=== PATIENT | male | born 1940 | race Caucasian/White ===

== ENCOUNTER → 2024-03-18 12:09 | Outpatient (REF) | payer MEDICARE, SELFPAY | LOC: RAD 12:09 | PROVIDERS: ATTENDING PHYSICIAN Pain Medicine Interventional Pain Medicine; FAMILY PHYSICIAN Internal Medicine | DX: M21.70 Unequal limb length (acquired), unspecified site (principal) | CPT/HCPCS: 77073 ==

== ENCOUNTER 2024-07-08 13:02 | Inpatient (IN) | payer MEDICARE, SELFPAY ==
[2024-07-08] VITALS (14 sets, daily range): BP systolic 127–168; BP diastolic 74–94; BMI 20.4
--- NOTE | 2024-07-08 10:54 | ED.GENMED ---
History of Present Illness
General
Chief Complaint: Chest Pain
Time Seen by Provider: 07/08/24 10:54
History of Present Illness
History of Present Illness:
TIME OF INITIAL ENCOUNTER: 11 AM
HPI: Patient presents for chest discomfort. This is described as tightness and woke him from sleep at 4 AM. He still has some ongoing discomfort. Although CAD is listed in his chart, the patient denies any known history of CAD. He does not have
any coronary stents. He is known to Dr. Gonzalez. He denies any shortness of breath. He reported to triage that he did have increased belching.
EXAM:
GENERAL: Well appearing in no distress
HEENT: Moist oral mucosa
CARDIOVASCULAR: No murmurs, normal heart rate, regular rhythm, No chest wall tenderness
PULMONARY: No respiratory distress, breath sounds are clear and equal
ABDOMEN: Soft with no peritoneal signs, no tenderness
NEUROLOGIC: Excellent strength all extremities, no coordination deficits
PSYCHIATRIC: Appropriate mental status, normal insight and judgement
EXTREMITIES: Nontender, no edema, moves all extremities equally
SKIN: No rash, no lesions
NUMBER AND COMPLEXITY OF PROBLEMS ADDRESSED AT THE ENCOUNTER
� Chronic conditions affecting care: High blood pressure, hyperlipidemia,
� Acute Exacerbation and/or Progression of Chronic Illness: This is an acute problem
� Differential Diagnosis includes: ACS, GERD, esophagitis, chest wall pain, anxiety
AMOUNT AND/OR COMPLEXITY OF DATA TO BE REVIEWED AND ANALYZED
� I performed an independent evaluation of and my interpretation is:
EKG: Sinus 79, left bundle branch block�more prominent now in comparison to 05/06/2022
CT:
X-rays:
Laboratory Studies: White count 13.1, hemoglobin normal, chemistries unremarkable, troponin elevated at 0.125 which is new (all old ones have been negative).
Other:
� Review of other/old records: I reviewed the nuclear stress test from 2022 which showed no reversible defect to suggest ischemia and was found to be a moderate risk study
� Clinical information was obtained by an independent historian: I spoke to the at bedside
� Prescriptions/Medications Considered but not given:
� Further testing considered but not performed:
RISK OF COMPLICATIONS AND/OR MORBIDITY OR MORTALITY OF PATIENT MANAGEMENT
� Social determinants of health affecting care: Lives at home
� Discussion with other providers: I notified Dr. Ayon and Dr. Cruz at 12:10 PM, also discussed with Dr. Desai was arranged for echo.
� Escalation of care including admission/observation vs risk of discharge considered: The patient has minimal chest discomfort still. He has a left bundle branch block which is new and a newly abnormal troponin. I have ordered
nitroglycerin sublingual, aspirin, and will plan to start heparin drip. He is very comfortable in appearance.
ANY OTHER UPDATES:
Before nitroglycerin given, chest pain resolved. Dr. Ayon also evaluated in the Emergency Department.
Past History
Past History
ED Past Medical History: Arrthythmia, HTN, Hypercholesterolemia and Other (Bronchitis, palpitations, BPH, cataracts)
ED Past Surgical History: None
Social History
Tobacco: Non-smoker
Alcohol: None
Drug: None
Personal:
Living: with family
Employment: Retired
Family History
Family History: Hypertension
Phy Exam
Physical Exam
Physical Exam:
See HPI
Scores
Heart Score for Chest Pain Patients
STEMI patient?: Not applicable
Course
Orders/Labs/Results
Orders:
Orders
07/08/24 10:39
Electrocardiogram (*1) Urgent
Reason for Study: Chest Pain
EKG- Treatment ONCE
07/08/24 11:11
Complete Blood Count/With Diff Urgent
Comprehensive Metabolic Panel Urgent
Magnesium Urgent
Troponin I Urgent
07/08/24 12:03
Aspirin 325 mg PO NOW STA
Heparin 4,000 units IV NOW STA
Nitroglycerin Sublingual [Nitrostat (Sublingual)] 0.4 mg SL NOW STA
Pharmacy Request to Place See Dose Instructions PO NOW STA
Discontinue all Active Warfarin orders?: Yes
07/08/24 12:[address] Non Medication Order As Directed
Physician Order: PTT 6 hours after initial start of Heparin infusion
07/08/24 12:11
PTT Urgent
Comment: Obtain baseline before beginning heparin infusion if not already collected
07/08/24 12:15
Heparin 86186 Units/250 ml 25,000 units in 250 ml IV PER PROTOCOL
Weight to be used for heparin protocol in kilograms (kg):: 70
Protocol:: Cardiac Tx/Acute Coronary
PTT Goal Range to be used:: PTT 73 to 111 seconds
Order type:: Initial
INITIAL Infusion Dose (UNITS/KG/hr) & then follow protocol:: 12 units/kg/hr
Infusion Dose in UNITS/hr & then follow protocol (UNITS/hr):: 850
INFUSION RATE in mL/hr & then follow protocol (mL/hr):: 8.5
PTT less than or equal to 64 seconds:: Increase rate by 200 units/hr (+ 2 mL/hr)
PTT 64.1 to 72.9 seconds:: Increase rate by 100 units/hr (+ 1 mL/hr)
PTT 73 to 111 seconds:: Target Range. No change in rate.
PTT 111.1 to 130.9 seconds:: Decrease rate by 100 units/hr (- 1 mL/hr)
PTT 131 to 199.9 seconds:: HOLD for 1 hr. Then decrease rate by 200 units/hr (- 2 mL/hr)
PTT greater than or equal to 200 seconds:: HOLD for 2 hrs & Notify Provider. Then decrease by 200 units/hr (-
2 mL/hr)
Lab follow-up:: Each change, PTT q6h until 2 consecutive are therapeutic. Then PTT
daily.
07/08/24 12:16
CARDIOLOGY CONSULT Routine
Consulting Provider: Jasson Ayon
Was physician already notified: Yes
Reason for consult: chest pain
07/08/24 12:25
Echo 2D MMode Color/Doppler Stat
Reason for Study: acute ND
07/08/24 12:37
Admit/Transfer Patient As Directed
Co-Sign Provider:
Level of Care: Inpatient admission
Assign to:: IVU
Physician / Group: Giselle
Diagnosis: acute NSTEMI
Reason for Hospitalization: acute NSTEMI
Expected length of stay greater than two midnights?: Yes
ELOS- Estimated Length of Stay in days: 3
I certify the patient meets the requirements for IP care: Yes
PRN Pain Medication Management As Directed
May give lesser potent ordered pain med per pt: Yes
preference::
Protocol:: Medication orders for pain may be administered in a
manner that supports deferring to patient preference
when the pt is:
- Requesting an ordered lesser potent pain medication.
Least to most potent pain medications are defined
as: acetaminophen < NSAID < tramadol < opioids
(morphine, oxycodone, hydromorphone).
- Requesting a lesser dose of the same medication IF
ORDERED.
- Requesting a less intrusive route of administration
if both routes are prescribed by the provider (PO <
IV).
07/08/24 12:40
Code Status As Directed
Resuscitation Status: Full Code
07/08/24 13:[address] See Dose Instructions IV DIRECTED
07/08/24 18:15
PTT Routine
Abnormal Lab Results
07/08/24
11:11
WBC 13.1 H 10^3/uL
(4.8-10.8)
RBC 4.65 L 10^6/uL
(4.70-6.10)
MCV 94.2 H fL
(80.0-94.0)
MCH 31.2 H pg
(27.0-31.0)
MPV 11.4 H fL
(7.4-10.4)
Abs Immat Gran (auto) 0.1 H 10^3/uL
(0-0.05)
Absolute Neuts (auto) 12.1 H 10^3/uL
(1.4-6.5)
Absolute Lymphs (auto) 0.2 L 10^3/uL
(1.2-3.4)
Absolute Monos (auto) 0.7 H 10^3/uL
(0.1-0.6)
Neutrophils % 92.5 H %
(42.2-75.2)
Lymphocytes % 1.4 L %
(20.5-51.1)
BUN 27 H mg/dl
(9-20)
Glucose 131 H mg/dl
(70-99)
Troponin I 0.125 H* ng/ml
07/08/24 11:11
07/08/24 11:11
Vital Signs
Initial and Last Documented VS:
Initial Vital Signs
Temp Pulse Resp BP Pulse Ox
36.7 C 91 18 168/89 94
07/08/24 10:44 07/08/24 10:44 07/08/24 10:44 07/08/24 10:44 07/08/24 10:44
Last Documented Vital Signs
Temp Pulse Resp BP Pulse Ox
36.7 C 78 22 154/87 95
07/08/24 10:44 07/08/24 12:13 07/08/24 12:13 07/08/24 12:27 07/08/24 12:13
*Critical Care Note
Total Time (30-74mins, 75-104mins- exclusive of procedures): Not Applicable
ED Attending Note
-
Portions of this chart may have been created with voice recognition software.� Occasional wrong word or��sound alike� substitutions may have occurred due to the inherent limitations of voice recognition software.
Discharge Plan
Departure
Patient Disposition: Admit
Date of Disposition: 07/08/24
Time of Disposition: 12:09
Presentation/result/management discussed w/ accepting MD/DO: Hospitalist
Discharge Problem:
Acute coronary syndrome
Interventions
Interventions:
*Risk Screen - Suicide Last Done: 07/08/24 10:44
*General Assessment Last Done: 07/08/24 10:44
*Neglect/Abuse Screening Last Done: 07/08/24 10:44
ED- Fall Risk Assessment Last Done: 07/08/24 11:15
JH-Djhqfg-Fmiirgvupk Assessment Last Done: 07/08/24 11:15
ED- Cardiac Assessment Last Done: 07/08/24 11:15
[2024-07-08 11:19] LABS: % Basophils 0.4 % (0-2); % Eosinophils 0.2 % (0-6); % Immature Granulocytes 0.4 % (0-0.5); % Lymphocytes 1.4 % (20.5-51.1); % Monocytes 5.1 % (1.7-9.3); % Neutrophils 92.5 % (42.2-75.2); Absolute Basophils 0.1 10^3/uL (0-0.2); Absolute Immature Granulocytes 0.1 10^3/uL (0-0.05); Absolute Lymphocytes 0.2 10^3/uL (1.2-3.4); Absolute Monocytes 0.7 10^3/uL (0.1-0.6); Absolute Neutrophils 12.1 10^3/uL (1.4-6.5); Hematocrit 43.8 % (39.0-52.0); Hemoglobin 14.5 g/dL (13.0-18.0); Mean Corp Hgb Conc. 33.1 g/dL (33.0-37.0); Mean Corpuscular Hgb 31.2 pg (27.0-31.0); Mean Corpuscular Volume 94.2 fL (80.0-94.0); Mean Platelet Volume 11.4 fL (7.4-10.4); Nucleated Red Blood Cells % 0 % (-); Platelet Count 222 10^3/uL (130-400); Red Blood Cell Count 4.65 10^6/uL (4.70-6.10); Red Cell Dist. Width 13.1 % (11.5-14.5); White Blood Cell Count 13.1 10^3/uL (4.8-10.8)
[2024-07-08 11:31] LABS: ALT (SGPT) 20 U/L (0-50); AST (SGOT) 25 U/L (17-59); Albumin 4.6 g/dl (3.5-5.0); Alkaline Phosphatase 113 U/L (38-126); Blood Urea Nitrogen 27 mg/dl (9-20); Calcium 8.9 mg/dl (8.4-10.2); Carbon Dioxide 24 mmol/L (22-30); Chloride 101 mmol/L (98-107); Estimated Creatinine Clearance 48 ml/min; Glucose 131 mg/dl (70-99); Magnesium 1.9 mg/dl (1.6-2.3); Potassium 4.5 mmol/L (3.5-5.1); Sodium 136 mmol/L (135-145); Total Bilirubin 1.3 mg/dl (0.2-1.3); Total Protein 7.4 g/dl (6.3-8.2); eGFR > 60.00
[2024-07-08 11:44] LABS: Troponin I 0.125 ng/ml
[2024-07-08] MEDS: HEPARIN 4000 UNITS IV (12:21)
[2024-07-08] MEDS: ASPIRIN 325 MG PO (12:21)
[2024-07-08] MEDS: HEPARIN 25000 UNITS/250 ML IV (12:22)
[2024-07-08] MEDS: NITROSTAT (SUBLINGUAL) 0.4 MG SL (12:27)
--- NOTE | 2024-07-08 12:30 | W.PN.UPDATE ---
Update Note
Progress Note Update
I personally performed a history and physical exam of the patient and discussed management with the resident. I reviewed the resident's note and agree with the documented findings and plan of care HPI/CC.
84-year-old male presents with a chief complaint chest pain. He reports this morning he woke up and had pressure-like retrosternal chest pain that was radiating to his abdomen. He walked to the bathroom and had diarrhea and vomiting. Denies any
palpitations, diaphoresis, neck or arm pain. Denies worsening of chest pain with walking to the bathroom. Patient's chest pain resolved in the ER prior to sublingual nitroglycerin being given.
Gen: NAD, AAOx3.
Eyes: EOMI, PERRLA, no scleral icterus.
Neck: supple.
CV: RRR with occasional premature beats, +S1/S2, no m/r/g.
Resp: CTAB, no rales, wheezes, or rhonchi.
Abd: +BS, soft, NT, ND
Skin: No rashes.
Neuro: CN 2-12 intact, non-focal.
Psych: Normal mood and affect.
ECG (read by me): SR @ 79 with new LBBB
Acute NSTEMI:
-elevated trop and typical CP based on hx
-Heparin gtt started in ER, continue
-ASA given in ER, continue
-STAT Echo to assess EF and WMA (I called echo dept to inform them of STAT order)
-cards to see, discussed with Dr. Ayon
-admit to IVU
-trend trop
-likely will need LHC
-serial ECGs
HLD: check FLP, cont statin
Essential HTN: on Norvasc at home, will likely change antihypertensive therapy to BB, ACEi, etc.
FULL/Heparin gtt/IVU
[2024-07-08 12:33] LABS: APTT 28.1 Sec (23.4-35.0)
--- NOTE | 2024-07-08 12:48 | HPS.HSE ---
Family Physician
-
Family Physician: OLEG Farrell
Chief Complaint
-
Chest tightness
History of Present Illness
84-year-old male with history of hypertension, hypercholesterolemia, GERD, remote history of palpitations who presents with chest tightness. He went to bed last night in his usual state of health but was woken up by chest tightness at 4 AM also
experienced vomiting, diarrhea, sweats, increased belching and flatulence. He did not present immediately at symptom onset becomes chest tightness seem to be resolving. However he decided to come in as it did not resolve completely. He denies
chest pain, palpitations, jaw/shoulder pain, headaches, lightheadedness or hx of recent illness. Currently no nausea/vomiting, abdominal pain or diarrhea.
Medical History
Past Medical History
Past Medical History: Reports GERD, HTN, Hypercholesterolemia and Other (Remote history of palpitations)
Past Surgical History: Reports Other (Cataract surgery)
Social History
Tobacco: Former Smoker (Quit 45 years ago)
Alcohol: Occasional
Drug: None
Personal:
Living: With Family
Employment: Retired
Family History
Family History: Not pertinent
Allergies / Home Medications
Allergies reflects when Allergies were last updated in [facility].
Home Medications with original date entered in [facility]
Allergies
Allergy/AdvReac Type Severity Reaction Status Date / Time
Penicillins Allergy Hives Verified 05/06/22 05:27
Sulfa (Sulfonamide Allergy Hives Verified 05/06/22 05:27
Antibiotics)
Home Medications
aspirin 81 mg tablet,delayed release 81 mg PO HS 11/06/11
atorvastatin 10 mg tablet (Lipitor) 10 mg PO HS 09/22/17
docusate sodium 100 mg capsule (Stool Softener) 100 mg PO BID 02/09/20
amlodipine 2.5 mg tablet 2.5 mg PO BID 12/14/21
indomethacin 75 mg capsule,extended release 75 mg PO DAILY 12/14/21
vitamin A-vitamin C-vit E-min tablet 1 tab PO DAILY 12/14/21
brimonidine 0.1 % eye drops 1 drp LEFT EYE DAILY 07/08/24
calcium carbonate (Tums) 200 mg PO Q6HPRN PRN heartburn 07/08/24
dorzolamide 2 % eye drops 1 drp LEFT EYE DAILY 07/08/24
dutasteride 0.5 mg capsule 0.5 mg PO DAILY 07/08/24
folic acid 1 mg tablet 1 mg PO DAILY 07/08/24
latanoprost 0.005 % eye drops 1 drp BOTH EYES HS 07/08/24
magnesium hydroxide 311 mg chewable tablet 622 mg PO HS 07/08/24
omeprazole 20 mg capsule,delayed release 20 mg PO DAILY 07/08/24
sodium chloride 2 % eye drops (Gaby 128) 1 drp BOTH EYES HS 07/08/24
sodium chloride 2 % eye drops (Gaby 128) 1 drp LEFT EYE DAILY 07/08/24
therapeutic multivitamin 1 tab PO DAILY 07/08/24
Allergy/Medication List:
Allergies
Allergy/AdvReac Type Severity Reaction Status Date / Time
Penicillins Allergy Hives Verified 05/06/22 05:27
Sulfa (Sulfonamide Allergy Hives Verified 05/06/22 05:27
Antibiotics)
Home Medications
aspirin 81 mg tablet,delayed release 81 mg PO HS 11/06/11
atorvastatin 10 mg tablet (Lipitor) 10 mg PO HS 09/22/17
docusate sodium 100 mg capsule (Stool Softener) 100 mg PO BID 02/09/20
amlodipine 2.5 mg tablet 2.5 mg PO BID 12/14/21
indomethacin 75 mg capsule,extended release 75 mg PO DAILY 12/14/21
vitamin A-vitamin C-vit E-min tablet 1 tab PO DAILY 12/14/21
brimonidine 0.1 % eye drops 1 drp LEFT EYE DAILY 07/08/24
calcium carbonate (Tums) 200 mg PO Q6HPRN PRN heartburn 07/08/24
dorzolamide 2 % eye drops 1 drp LEFT EYE DAILY 07/08/24
dutasteride 0.5 mg capsule 0.5 mg PO DAILY 07/08/24
folic acid 1 mg tablet 1 mg PO DAILY 07/08/24
latanoprost 0.005 % eye drops 1 drp BOTH EYES HS 07/08/24
magnesium hydroxide 311 mg chewable tablet 622 mg PO HS 07/08/24
omeprazole 20 mg capsule,delayed release 20 mg PO DAILY 07/08/24
sodium chloride 2 % eye drops (Gaby 128) 1 drp BOTH EYES HS 07/08/24
sodium chloride 2 % eye drops (Gaby 128) 1 drp LEFT EYE DAILY 07/08/24
therapeutic multivitamin 1 tab PO DAILY 07/08/24
Review of Systems
-
History Source: Patient
A 12 point ROS was completed and negative except as noted: Yes
Constitutional: Denies Fever
Respiratory: Denies Cough or Trouble Breathing
Cardiac: Denies Chest Pain, Palpitations or Syncope
Abdomen/GI: Denies Nausea, Vomiting or Diarrhea
: Denies Dysuria or Difficulty Voiding
Neurological: Denies Dizzy or Headache
Physical Exam
Vital Signs
Vital Signs
Temp Pulse Resp BP Pulse Ox
98.1 F 91 18 154/87 94
07/08/24 10:44 07/08/24 10:44 07/08/24 10:44 07/08/24 12:27 07/08/24 10:44
Physical Exam
General: No Apparent Distress, Comfortable and Conversant
HEENT: NormoCephalic, Anicteric and Moist mucous membranes
Respiratory: Clear and Non Labored Respirations; No Wheezes, Rales, Rhonchi or Crackles
Cardiac: S1/S2 and Regular Rhythm; No Murmur, Rub, Peripheral Edema or Calf Tenderness
GI: Soft, Non Tender, Non Distended and Normal Bowel Sounds
Musculoskeletal: No Clubbing, No Cyanosis and No Edema
Skin: Warm and Dry
Neuro: Awake, Alert and Oriented
Psych: Calm
Laboratory Results
-
07/08/24 11:11
07/08/24 11:11
Laboratory Results
Total Bilirubin 1.3 mg/dl (0.2-1.3) 07/08/24 11:11
AST 25 U/L (17-59) 07/08/24 11:11
ALT 20 U/L (0-50) 07/08/24 11:11
Alkaline Phosphatase 113 U/L (38-126) 07/08/24 11:11
Troponin I 0.125 ng/ml H* 07/08/24 11:11
Impression/Plan
-
IMPRESSION: 84-year-old male with history hypertension, hypercholesterolemia, and GERD presents with chest tightness.
PLAN:
Acute NSTEMI:
� Elevated troponin with typical chest pain based on history
� Heparin drip started in ED, continue
� Aspirin given in ER, continue
�Space stat echo to assess EF and WMA -echo department aware
�Peds cards to see, cases discussed with Dr. Ayon
�Space admit to IVU
� Trend trops
� Likely will need left heart cath
� Serial ECGs
Hyperlipidemia:
� Patient check lipids
� Continue statin
Essential hypertension:
On Norvasc at home, will likely change antihypertensive therapy to beta-lb/JONNA inhibitor
GERD:
-PPI
CODE STATUS: Full code
DVT PPx: On heparin drip
--- NOTE | 2024-07-08 13:12 | CON.CAR ---
Consultation
Consultation Request
Date/Time Consultation Requested: 07/08/23
Date/Time Consultation Performed: 07/08/2411 15
Requesting Provider: Dr Desai
Performing Provider: Dr Ayon
Reason for Consultation: Chest pain
Medical History
-
History of Present Illness:
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
84-year-old male with history of hypertension, hypercholesterolemia, peripheral arterial disease, LBBB, SVT/atrial tachycardia who presents with chest discomfort, nausea vomiting and diarrhea patient was in his usual state of health until early this
morning. He got up and had to go to the bathroom. While in the bathroom he had episodes of watery diarrhea and vomiting. He also states that he had some mid sternal chest discomfort he just describes it as an uncomfortable feeling might have been
or pressure. Onset of symptoms around 4 AM. He states that the chest discomfort waxed and waned but never fully went away so he went to the ER. Troponin in the ER is 0.125ECG sinus rhythm and left bundle branch block in the ER patient was given
sublingual nitroglycerin, aspirin and heparin currently chest pain-free.
Patient denies having any other cardiac history
Past medical history
Peripheral arterial disease. Superficial femoral artery occlusion
Hypertension
Hypercholesterolemia
Left bundle branch block
SVT/PAT
BPH
? CAD. Listed in chart although patient denies prior history or prior cardiac catheterization
Last Lexiscan nuclear stress test report 05/30/2022 no evidence of ischemia inferoseptal defect consistent with soft tissue
Social History
Tobacco: Non-Smoker
Allergies / Home Medications
Allergy/AdvReac Type Severity Reaction Status Date / Time
Penicillins Allergy Hives Verified 05/06/22 05:27
Sulfa (Sulfonamide Allergy Hives Verified 05/06/22 05:27
Antibiotics)
�Medication �Instructions �Recorded �Confirmed �Type
aspirin 81 mg tablet,delayed 81 mg PO HS 11/06/11 07/08/24 History
release
atorvastatin 10 mg tablet (Lipitor) 10 mg PO HS 09/22/17 07/08/24 History
docusate sodium 100 mg capsule 100 mg PO BID 02/09/20 07/08/24 History
(Stool Softener)
amlodipine 2.5 mg tablet 2.5 mg PO BID 12/14/21 07/08/24 History
indomethacin 75 mg 75 mg PO DAILY 12/14/21 07/08/24 History
capsule,extended release
vitamin A-vitamin C-vit E-min 1 tab PO DAILY 12/14/21 07/08/24 History
tablet
brimonidine 0.1 % eye drops 1 drp LEFT EYE DAILY 07/08/24 07/08/24 History
calcium carbonate (Tums) 200 mg PO Q6HPRN PRN heartburn 07/08/24 07/08/24 History
dorzolamide 2 % eye drops 1 drp LEFT EYE DAILY 07/08/24 07/08/24 History
dutasteride 0.5 mg capsule 0.5 mg PO DAILY 07/08/24 07/08/24 History
folic acid 1 mg tablet 1 mg PO DAILY 07/08/24 07/08/24 History
latanoprost 0.005 % eye drops 1 drp BOTH EYES HS 07/08/24 07/08/24 History
magnesium hydroxide 311 mg 622 mg PO HS 07/08/24 07/08/24 History
chewable tablet
omeprazole 20 mg capsule,delayed 20 mg PO DAILY 07/08/24 07/08/24 History
release
sodium chloride 2 % eye drops 1 drp BOTH EYES HS 07/08/24 07/08/24 History
(Gaby 128)
sodium chloride 2 % eye drops 1 drp LEFT EYE DAILY 07/08/24 07/08/24 History
(Gaby 128)
therapeutic multivitamin 1 tab PO DAILY 07/08/24 07/08/24 History
Review of Systems
-
All other systems: Negative unless noted
Physical Exam
Vital Signs
Temp Pulse Resp BP Pulse Ox
98.1 F 78 22 154/87 95
07/08/24 10:44 07/08/24 12:13 07/08/24 12:13 07/08/24 12:27 07/08/24 12:13
Lab Results
07/08/24 11:11
07/08/24 11:11
Troponin I 0.125 ng/ml H* 07/08/24 11:11
Physical Exam
General: Well Developed and Well Nourished
HEENT: Normocephalic
Respiratory: Clear (No wheezes rales or rhonchi)
Cardiac: Regular Rhythm
GI: Soft, Non Tender, Non Distended and Normal Bowel Sounds
Musculoskeletal: No Clubbing, No Cyanosis and Other (Palpable PT pulse)
Skin: Warm, Dry and Rash (No rash no edema)
Neuro: Awake and Alert
Psych: Calm and Other (Cooperative normal mood)
Impression / Plan
-
.
Chest discomfort. Patient with history of peripheral arterial disease hypertension and hypercholesterolemia with waxing and waning chest discomfort this morning which occurred over the course of 4 to 6 hours currently chest pain-free. With above
history and chest discomfort and abnormality in troponin need to consider ACS as cause however patient also with significant GI symptoms including vomiting and watery diarrhea. Patient with known history of left bundle branch block
-Patient currently chest pain-free
-Continue with aspirin and heparin
-Beta-lb
-Nitrates
-Echo
-Serial troponins
-Would continue with medical therapy while patient chest pain-free and has reassess what is going on from a GI standpoint. If patient has refractory chest discomfort or if has significant abnormalities by echo then would consider cardiac
catheterization sooner.
.
Hypertension. Currently stable continue to monitor
.
Hypercholesterolemia statin
-Increase dose of atorvastatin.
.
History of PAD
Data Reviewed
-
EKG: Report Reviewed by me
Radiology: Report Reviewed by me
Medical Tests (Nuc Med, Echo etc): Report Reviewed by me
Labs: Labs Reviewed by me
[2024-07-08] MEDS: NITRO-BID 1 INCH TOPICAL (14:00)
[2024-07-08 16:32] LABS: ACT-LR - POC 356 Seconds (116-155)
[2024-07-08 16:48] LABS: ACT-LR - POC 322 Seconds (116-155)
--- NOTE | 2024-07-08 17:16 | ITS.CL.ANGIO ---
[facility] Director - Angioplasty
Angioplasty
Procedure Report:
CARDIAC CATHETERIZATION REPORT
Date of Procedure: 07/08/2024
Referring: Jasson Ayon M.D.
INDICATION: Non-ST elevation myocardial infarction.
PROCEDURE:
1. Left heart catheterization
2. Coronary angiography.
3. Successful PCI of the ramus intermedius.
4. Successful PCI of the proximal RCA.
A total of 79 minutes of procedural/moderate sedation was utilized. An independent medical affairs director was present to assist with and help manage the patient's level of consciousness and physiologic status.
ACCESS:
1. 6 Mosotho right radial artery using a modified Seldinger technique.
2. 6 Mosotho right common femoral artery using a modified Seldinger technique with a micropuncture kit under ultrasound guidance. Ultrasound image obtained.
CATHETERS:
1. 5 Mos[place] JR4.
2. 6 Mosotho JL 5.
3. 6 [place]otho EBU 4.0 guiding catheter.
4. 6 Mosotho AL 0.75 guiding catheter.
5. 6 Mosotho angled pigtail.
HEMODYNAMIC DATA
Weight (kg): 69.9
AO (s/d/x, mmHg): 165/70/103
LV (s/x mmHg): 166/15 (A wave to 27)
LEFT VENTRICULOGRAPHY: Not performed.
CORONARY ANGIOGRAPHY
Dominance: Right.
Left Main: Large size, trifurcating vessel. There is no coronary artery disease.
LAD: Normal size vessel giving rise to 1 significant diagonal. There is a 30% lesion in the mid LAD after the origin of the diagonal. There is a 50% distal LAD lesion. There is a 50-60% lesion in the ostium of the first diagonal.
Ramus: Large size vessel supplying the majority of the lateral wall. There is a discrete, 90% lesion in the mid third of the vessel with JUAN-3 flow.
Circumflex: Relatively small, vestigial vessel giving rise to 1 small obtuse marginal. There is no coronary artery disease.
RCA: Large size, dominant vessel with a significant posterolateral arcade. There is a hazy, shelflike 90% plaque in the proximal vessel, immediately after the downward turn of the RCA.
INTERVENTION(S)
1. Successful PCI of the 90% mid ramus lesion (Medtronic [place] 2.5 x 18 LUBA, postdilated with a 2.5 NC balloon) with reduction in stenosis to 0%, maintaining JUAN-3 flow.
2. Successful PCI of the hazy, shelflike 90% plaque in the proximal RCA (Medtronic [place] 3.5 x 22 LUBA, postdilated with a 3.5 NC balloon) with reduction in stenosis to 0%, maintaining JUAN-3 flow.
Narrative:
Our initial diagnostic angiography required alternate access. The right coronary artery was visualized from the right radial access, though admittedly nonselectively. The Suzan left catheters were unable to reach the left main coronary artery.
At this time, radial access was abandoned and right common femoral access was obtained using a modified Seldinger technique with a micropuncture kit under ultrasound guidance. After obtaining femoral access, it became clear that the patient had
significant tortuosity within the iliofemoral system. The original 6 Mosotho system was replaced with a 6 Mosotho Brite tip system to allow for ease of access and torque ability of the catheters.
After completing diagnostic angiography, the decision was made to proceed with percutaneous coronary intervention. The diagnostic catheter was removed over a wire and a 6Fr EBU 4.0 guiding catheter was advanced to the aortic root and seated in the
left main coronary artery. Additional heparin was given and a Power Turn Flex wire was advanced distal ramus intermedius. The 90% mid ramus lesion was predilated with a 2.0 x 12 semi-compliant balloon to 12 vicky. The semi-compliant balloon was
removed and a Medtronic [place] 2.5 x 18 drug-eluting stent was advanced. The stent was deployed at 12 atmospheres. The stent balloon was removed. A 2.5 x 12 noncompliant balloon was advanced into the stent and the stent was postdilated to 14
atmospheres. Angiography was performed in orthogonal views, confirming good stent expansion and an excellent angiographic result. The coronary wire was withdrawn and the guide was disengaged from the artery. The catheter was removed over a standard
J-wire.
We then turned our attention to the RCA. The decision was made to proceed with percutaneous coronary intervention. A 6Fr AL 0.75 guiding catheter was advanced to the aortic root and seated in the right coronary artery. A Power Turn Flex wire was
advanced into the distal RCA. The hazy, shelflike 90% proximal RCA lesion was predilated with a 2.0 x 12 semi-compliant balloon to 12 vicky. Given the size of the vessel and the difficulty with our initial balloon advancement, the decision was made
to predilate more aggressively. The 2.0 x 12 semicompliant balloon was withdrawn and a 3.0 x 15 noncompliant balloon was advanced. The noncompliant balloon was used to predilate the lesion to 12 vicky. The noncompliant balloon was removed and a
Medtronic [place] 3.5 x 22 drug-eluting stent was advanced. Unfortunately, the stent would not cross the lesion, in spite of aggressive predilation. The stent was withdrawn and a 6 Mosotho guide liner was advanced over balloon support. The lesion was
predilated using the 2.0 x 12 semicompliant balloon and the GuideLiner was used to sheath the balloon. The semicompliant balloon was withdrawn and the stent was readvanced, this time passing into the mid RCA with relative ease. The GuideLiner was
pulled back into the proximal vessel to allow for full visualization of the lesion. Meticulous care was taken while positioning the stent in the proximal RCA. When we were satisfied with our position, the stent was deployed at 12 atmospheres. The
stent balloon was removed. A 3.5 x 20 noncompliant balloon was advanced into the stent and the stent was postdilated to 15 atmospheres. Angiography was performed in orthogonal views, confirming good stent expansion and an excellent angiographic
result. The coronary wire was withdrawn and the guide was disengaged from the artery. The catheter was removed over a standard J-wire.
Closure Device: Radial band for the right radial artery, 6 Mosotho Angio-Seal for the right common femoral artery.
Radiation (mGy): 742.02
DAP (cm2.Gy): 58.8176
Fluoroscopy time (minutes): 15.7
CONCLUSIONS
1. Right dominant circulation with a 30% lesion in the mid LAD after the origin of the first diagonal, a 50% distal LAD lesion, a 50-60% lesion in the ostium of the first diagonal, a 90% lesion in the mid ramus status post successful PCI (Medtronic
[place] 2.5 x 18 LUBA, postdilated with a 2.5 NC balloon) and a hazy, shelflike 90% plaque lesion in the proximal RCA, status post successful PCI (Medtronic [place] 3.5 x 22 LUBA, postdilated with a 3.5 NC balloon) with reduction in both
stenoses to 0%, maintaining JUAN-3 flow.
2. Top normal filling pressures (LVEDP = 15 mmHg at 69.9 kg) with evidence of significant diastolic dysfunction (A wave to 27 mmHg).
RECOMMENDATIONS:
1. Expectant management after cardiac catheterization via right radial and right femoral approach.
2. Limited weight bearing on the right wrist for one week.
3. Dual antiplatelet therapy with aspirin and ticagrelor for at least 12 months, followed by aspirin indefinitely.
4. Aggressive secondary prevention with high-dose, high potency statin. Increase atorvastatin to 40 mg daily. Goal LDL <55.
5. OMT/GDMT as hemodynamics will permit. The patient would benefit from SGLT2 inhibitor given his diastolic dysfunction.
6. Referral to cardiac rehab.
Copy to: Maik Abad D.O., Jasson Ayon M.D., OLEG Curtis
Maik Abad, DO, FACC, FACP
--- NOTE | 2024-07-08 18:33 | PTCARENOTE ---
Received the patient from the cardiac cath rn in his bed. The patient is aaox3, vital signs are stable. NSR with a BBB is noted on the monitor. Right R-band in place with a positive right radial pulse noted. Rt groin dressing is c/d/i with a weak palpable
pulse noted. BL pedal pulses are noted by Doppler. He complains of a 6/10 left chest pain and describes it as 'stretching.' Explained to him the process of ballooning and stenting of his arteries. No pain medications have been ordered. I instructed
the patient on his activity restrictions and expected oob time. I oriented him to his room. His call crowe is within reach.
I was able to get a verbal order for pain medication from Dr. Abad.
[2024-07-08] MEDS: COLACE PO (19:39)
[2024-07-08] MEDS: LIPITOR 40 MG PO (19:46)
[2024-07-08] MEDS: LOPRESSOR 12.5 MG PO (19:46)
[2024-07-08] MEDS: NSS 525 IV (19:51)
[2024-07-08 20:28] LABS: APTT 87.7 Sec (23.4-35.0)
[2024-07-08 20:33] LABS: Cholesterol 125 mg/dl (50-199)
[2024-07-08] MEDS: MAG-TAB SR 84 MG PO (22:39)
[2024-07-08] MEDS: MURO-128/ADSORBONAC 2% EYE DROPS 1 DROP BOTH EYES (22:39)
[2024-07-08] MEDS: XALATAN OPHTHALMIC SOLUTION 1 DROP BOTH EYES (22:42)
--- NOTE | 2024-07-08 23:24 | PTCARENOTE ---
Received patient at change of shift. SR with a BBB on the monitor, HR in the 70s. Enhanced precautions in place. R radial band removed and dressing applied, see documentation. R groin dressing CDI, groin soft and ecchymotic. Weak pedal pulses. No
complaints from pt at this time, call crowe within reach.
[2024-07-09] VITALS (7 sets, daily range): BP systolic 121–152; BP diastolic 75–86
[2024-07-09 03:37] LABS: Hematocrit 38.1 % (39.0-52.0); Hemoglobin 12.8 g/dL (13.0-18.0); Mean Corp Hgb Conc. 33.6 g/dL (33.0-37.0); Mean Corpuscular Hgb 31.5 pg (27.0-31.0); Mean Corpuscular Volume 93.8 fL (80.0-94.0); Mean Platelet Volume 12.2 fL (7.4-10.4); Platelet Count 190 10^3/uL (130-400); Red Blood Cell Count 4.06 10^6/uL (4.70-6.10); Red Cell Dist. Width 13.3 % (11.5-14.5); White Blood Cell Count 9.4 10^3/uL (4.8-10.8)
[2024-07-09 03:47] LABS: ALT (SGPT) 25 U/L (0-50); AST (SGOT) 87 U/L (17-59); Albumin 3.5 g/dl (3.5-5.0); Alkaline Phosphatase 87 U/L (38-126); Blood Urea Nitrogen 29 mg/dl (9-20); Calcium 8.7 mg/dl (8.4-10.2); Carbon Dioxide 24 mmol/L (22-30); Chloride 102 mmol/L (98-107); Estimated Creatinine Clearance 53 ml/min; Glucose 101 mg/dl (70-99); HDL Cholesterol 55 mg/dl; LDL Cholesterol, Calculated 50 mg/dl; Potassium 4.4 mmol/L (3.5-5.1); Sodium 135 mmol/L (135-145); Total Bilirubin 1.3 mg/dl (0.2-1.3); Total Cholesterol 122 mg/dl (50-199); Total Protein 6.2 g/dl (6.3-8.2); Triglyceride 88 mg/dl (10-149); Very Low Density Lipoprotein 17 mg/dl (0-30); eGFR > 60.00
--- NOTE | 2024-07-09 07:31 | W.PN.CD ---
Today's Communication / Plan
-
D/C metoprolol.
Start carvedilol 6.25 mg BID.
Start losartan 25 mg daily.
D/C home amlodipine.
Trend troponin to peak.
Atorvastatin increased to 40 mg daily.
Impression / Plan
-
Impression/Plan: 84 y/o male with HTN, HLD, PAD and LBBB admitted with NSTEMI.
#NSTEMI
-Acute, threat to life.
-S/P PCI of the mRamus 90% lesion (Medtronic [place] 2.5 x 18 LUBA) and the pRCA 90% lesion (Medtronic [place] 3.5 x 22 LUBA).
-Troponin up to 13.8. Continue to trend.
-Chest pain resolved after PCI.
-Echo shows LVEF of 50% with some regionality, though difficult to discern true hypokinesis vs. LBBB.
-DAPT with aspirin and ticagrelor x 12 months, followed by aspirin indefinitely.
-Change metoprolol to carvedilol 6.25 mg BID.
-Add losartan 25 mg daily.
-High dose, high potency statin.
#Hypertension
-Chronic, moderately uncontrolled.
-Change metoprolol to carvedilol 6.25 mg BID.
-Start losartan 25 mg daily.
-DC amlodipine.
#Hyperlipidemia
-Chronic.
-Total cholesterol = 122, LDL = 50, HDL = 55, Triglycerides = 88.
-Increase atorvastatin to 40 mg daily, though he is currently at goal.
#PAD
-Chronic, stable.
-Denies current claudication/symptoms.
-Statin/DAPT as above.
#Dispo
-IVU status.
-Full code.
Subjective/Interval History:
Cath yesterday with PCI of the RI and pRCA.
Hypertensive overnight.
Feels well.
DATA:
Transthoracic Echocardiogram, 07/08/2024:
CONCLUSIONS
Mildly reduced left ventricular function with estimated ejection fraction of
50%.
Abnormal septal motion related to left bundle branch block. Possible septal
and anteroseptal hypokinesis
Aortic sclerosis without stenosis
Mildly dilated aortic root.
Compared to the previous report LV function mildly decreased.
Cardiac Catheterization/PCI, 07/08/2024:
CONCLUSIONS
1. Right dominant circulation with a 30% lesion in the mid LAD after the origin of the first diagonal, a 50% distal LAD lesion, a 50-60% lesion in the ostium of the first diagonal, a 90% lesion in the mid ramus status post successful PCI (Medtronic
[place] 2.5 x 18 LUBA, postdilated with a 2.5 NC balloon) and a hazy, shelflike 90% plaque lesion in the proximal RCA, status post successful PCI (Medtronic [place] 3.5 x 22 LUBA, postdilated with a 3.5 NC balloon) with reduction in both
stenoses to 0%, maintaining JUAN-3 flow.
2. Top normal filling pressures (LVEDP = 15 mmHg at 69.9 kg) with evidence of significant diastolic dysfunction (A wave to 27 mmHg).
Physical Exam
Vital Signs/Labs
Vital Signs
Temp Pulse Resp BP Pulse Ox
36.2 C 66 20 153/84 97
07/09/24 07:07 07/08/24 23:00 07/09/24 07:07 07/08/24 22:40 07/09/24 07:07
07/07/24 07/08/24 07/09/24
11:59 11:59 11:59
Actual Weight 70 kg
07/09/24 02:18
07/09/24 02:18
APTT 87.7 Sec (23.4-35.0) H 07/08/24 19:53
Magnesium 1.9 mg/dl (1.6-2.3) 07/08/24 11:11
Triglycerides 88 mg/dl (10-149) 07/09/24 02:18
Cholesterol 125 mg/dl (50-199) 07/08/24 19:53
LDL Cholesterol, Calc 50 mg/dl 07/09/24 02:18
VLDL Cholesterol, Calc 17 mg/dl (0-30) 07/09/24 02:18
HDL Cholesterol 55 mg/dl 07/09/24 02:18
LAB Results
07/08/24 07/08/24 07/08/24
11:11 13:50 17:47
Troponin I 0.125 H* 2.270 H* D Cancelled
07/08/24 07/08/24 07/08/24
19:53 20:47 23:47
Troponin I 8.610 H* D Cancelled Cancelled
07/09/24
02:18
Troponin I 13.800 H* D
Physical Exam
Constitutional: No acute distress and Comfortable
EENT: Anicteric and Moist mucous membranes
Cardiovascular: Rhythm & rate is regular, Pedal edema is absent, JVD pressure is normal, S1S2 is normal and Murmur/rub/gallop absent
Respiratory: Respiratory effort normal, Lungs clear to auscul., Wheeze Absent, Crackles Absent and Rhonchi Absent
GI: Soft, Distention absent, Flat, Non tender and Normal bowel sounds
Neuro/Psych: AO x 3
Other: Cath Site (Right radial access site is C/D/I.)
Data Reviewed
-
Date of Service: July 09, 2024
Medical Decision Making: Reviewed Test Results, Independent Historian Assessment and Test Interpretation
EKG: Tracing Personally Visualized and interpreted and Report Reviewed by me
Echo: Tracing Personally Visualized and interpreted and Report Reviewed by me
X-Ray/CT/US/MRI/NUC/PET: Image Personally Visualized and interpreted and Report Reviewed by me
Medical Tests (PFT, Pathology etc): Image Personally Visualized and interpreted, Report Reviewed by me, Discussed with Patient and Discussed with Family
Labs: Labs Reviewed by me
Old Records: Reviewed
--- NOTE | 2024-07-09 08:20 | W.PN.HOSP.TC ---
Today's Communication/Plan
-
Status post [facility] + stents. Monitor cardiovascular statuss
Assessment / Plan
Assessment / Plan
IMPRESSION: 84-year-old male with history hypertension, hypercholesterolemia, and GERD presents with acute coronary syndrome
PLAN:
Acute NSTEMI:
� Elevated troponin with typical chest pain based on history
� Continue heparin
� Continue aspirin, carvedilol, Losartan, statin
� Echo with Mildly reduced left ventricular function with estimated ejection fraction of 50%. Abnormal septal motion related to left bundle branch block. Possible septal and anteroseptal hypokinesis
- Status post Left heart cath: noted diastolic dysfunction. Stents placed in LAD and pRCA
� Trops peaked at 13.8, downtrend
Hyperlipidemia:
� LDL controlled on Atorvastatin
� Atorvastatin 40mg
Essential hypertension:
- Norvasc switched to Losartan 25mg
GERD:
-PPI
CODE STATUS: Full code
DVT PPx: On heparin drip
Anticipated Discharge: Within 24 hours
Subjective/Interval History
-
Date of Service: July 09, 2024
Diarrhea/nausea resolved. No episodes since admitted
Objective Data
-
Labs:
Laboratory Results
07/08/24 07/09/24
19:53 02:18
WBC 9.4
Hgb 12.8 L
Hct 38.1 L
Plt Count 190
APTT 87.7 H
Sodium 135
Potassium 4.4
Chloride 102
Carbon Dioxide 24
BUN 29 H
Creatinine 1.0
Glucose 101 H
Calcium 8.7
Total Bilirubin 1.3
AST 87 H
ALT 25
Alkaline Phosphatase 87
Vital Signs:
Vital Signs
Temp Pulse Resp BP Pulse Ox
97.2 F 69 20 139/86 97
07/09/24 07:07 07/09/24 07:06 02/20/25 07:07 07/09/24 07:06 07/09/24 07:07
Review of Systems
-
History Source: Patient
Constitutional: Denies Fever or No Appetite
Respiratory: Denies Cough or Trouble Breathing
Cardiac: Denies Chest Pain or Palpitations
Abdomen/GI: Denies Abdominal Pain, Nausea, Vomiting or Diarrhea
Physical Exam
-
General: Well Developed, Well Nourished, No Apparent Distress and Comfortable; Negative Respiratory Distress
HEENT: Normocephalic, Atraumatic and Moist Mucous Membranes
Respiratory: Clear to Auscultation and Non Labored Respirations; Negative Wheezes, Rales, Rhonchi or Crackles
Cardiac: Regular Rhythm and S1/S2; Negative Murmur, Rub or Calf Tenderness
GI: Soft, Nontender, Nondistended and Normal Bowel Sounds
Musculoskeletal: No Clubbing, No Cyanosis and No Edema
Skin: Warm and Dry
Neuro: Awake, Alert and Oriented
Psych: Calm
[2024-07-09 09:08] LABS: Glycohemoglobin (HgbA1c) 5.5 % (4.0-5.6)
[2024-07-09] MEDS: BRILINTA 90 MG PO ×2 (09:28→19:42)
[2024-07-09] MEDS: COREG 6.25 MG PO ×2 (09:29→19:41)
[2024-07-09] MEDS: COLACE 100 MG PO ×2 (09:29→19:42)
[2024-07-09] MEDS: COZAAR 25 MG PO (09:30)
[2024-07-09] MEDS: LOW STRENGTH ASPIRIN 81 MG PO (09:31)
[2024-07-09] MEDS: PROSCAR 5 MG PO (09:31)
[2024-07-09] MEDS: FOLVITE 1 MG PO (09:31)
[2024-07-09] MEDS: THERAGRAN 1 TABLET PO (09:32)
[2024-07-09] MEDS: PROTONIX 40 MG PO (09:32)
[2024-07-09] MEDS: ALPHAGAN P 0.1% EYE DROPS 1 DROP LEFT EYE (09:34)
[2024-07-09] MEDS: TRUSOPT 2% OPHTHALMIC SOLUTION 1 DROP LEFT EYE (09:35)
[2024-07-09] MEDS: MURO-128/ADSORBONAC 2% EYE DROPS 1 DROP LEFT EYE (09:38)
--- NOTE | 2024-07-09 10:33 | CM ---
Addendum entered by CAROLYN Persaud 07/09/24 10:57:
Pt's pharm, [facility] reports that they have medication in stock.
Original Note:
Priced Brilinta thru patient's RX plan, [employer], . Estimated cost of Brilinta is $24.19/30 d supply.
--- NOTE | 2024-07-09 12:30 | W.PN.UPDATE ---
Update Note
Progress Note Update
I saw and evaluated the patient. I reviewed the resident�s note and agree with findings and plan as documented in the resident�s note.
Currently denies chest pain
Gen: NAD, AAOx3.
Eyes: EOMI, PERRLA, no scleral icterus.
Neck: supple.
CV: RRR, +S1/S2, no m/r/g.
Resp: CTAB anteriorly, no rales, wheezes, or rhonchi.
Abd: +BS, soft, NT, ND
Skin: No rashes.
Neuro: remains CN 2-12 intact, non-focal.
Psych: Normal mood and affect.
ECG on admission (read by me): SR @ 79 with new LBBB
Echo: EF 50%. Abnormal septal motion related to left bundle branch block. Possible septal and anteroseptal hypokinesis. Aortic sclerosis without stenosis. Mildly dilated aortic root. Compared to the previous report LV function mildly decreased
Acute NSTEMI:
-On admission the patient was placed on a heparin drip and had an echocardiogram as above. With rising troponin the patient was taken to cardiac cath. Trop peaked at 13.8.
-[facility] 07/08/24 (femoral access): LVEDP = 15 (top normal) with a wave to 27 (diastolic dysfunction). Moderate LAD disease. 90% mid-ramus s/p 2.5 x 18 LUBA, calcified 90% pRCA s/p 3.5 x 22 LUBA.
-cont ASA/Brilinta/Lipitor/Coreg/Losartan
Other problems:
HLD: cont statin
Essential HTN: cont Coreg/Losartan
FULL code
Dispo: Case discussed with cardiology, likely d/c tomorrow.
--- NOTE | 2024-07-09 13:39 | CM ---
CM following for DC planning needs.
Met w/ patient at bedside to complete initial assessment.
Pt. resides w/ spouse in a private, ranch style home. Functionally, patient is indep. w/ ADLs, mobility without the use of any assisted device.
Advised pt. of estimated co payment for Brilinta-pt. aware/ agreeable.
Anticipated DC plan is for home, no needs.
Will follow.
[2024-07-09 13:56] LABS: Glucose - Point of Care 106 mg/dl (70-99)
[2024-07-09 17:17] LABS: Glucose - Point of Care 105 mg/dl (70-99)
--- NOTE | 2024-07-09 17:31 | PTCARENOTE ---
Pt walked in room and halls perico well. He c/o some discomfort at L mid axillilary line, at level of mid ribs. He attributes this to gas pain, he reports 'passing a lot of gas'. He denies chest pain today.
[2024-07-09] MEDS: LIPITOR 40 MG PO (18:17)
[2024-07-09 21:47] LABS: Glucose - Point of Care 108 mg/dl (70-99)
[2024-07-09] MEDS: XALATAN OPHTHALMIC SOLUTION 1 DROP BOTH EYES (22:45)
[2024-07-09] MEDS: MURO-128/ADSORBONAC 2% EYE DROPS 1 DROP BOTH EYES (22:45)
[2024-07-09] MEDS: MAG-TAB SR 84 MG PO (22:45)
--- NOTE | 2024-07-09 23:18 | PTCARENOTE ---
Received patient at change of shift. SR on the monitor with BBB, HR in the 70s. R radial and R groin CDI. No complaints from pt at this time, call crowe within reach.
[2024-07-10 04:57] VITALS: BP 130/83
[2024-07-10 05:28] LABS: Hematocrit 35.7 % (39.0-52.0); Hemoglobin 12.2 g/dL (13.0-18.0); Mean Corp Hgb Conc. 34.2 g/dL (33.0-37.0); Mean Corpuscular Hgb 30.9 pg (27.0-31.0); Mean Corpuscular Volume 90.4 fL (80.0-94.0); Mean Platelet Volume 11.5 fL (7.4-10.4); Platelet Count 180 10^3/uL (130-400); Red Blood Cell Count 3.95 10^6/uL (4.70-6.10); Red Cell Dist. Width 13.2 % (11.5-14.5)
[2024-07-10 06:00] VITALS: BMI 19.8
[2024-07-10 07:20] VITALS: BP 143/84
[2024-07-10 07:24] LABS: Glucose - Point of Care 91 mg/dl (70-99)
--- NOTE | 2024-07-10 07:28 | W.PN.CD ---
Today's Communication / Plan
-
Repeat echocardiogram in 90 days.
Referral to cardiac rehab.
Discharge.
Impression / Plan
-
Impression/Plan: 84 y/o male with HTN, HLD, PAD and LBBB admitted with NSTEMI.
#NSTEMI
-Acute, threat to life.
-S/P PCI of the mRamus 90% lesion (Medtronic [place] 2.5 x 18 LUBA) and the pRCA 90% lesion ([employer]tronic [place] 3.5 x 22 LUBA).
-Troponin peaked at 13.8.
-Chest pain resolved after PCI.
-Echo shows LVEF of 50% with some regionality, though difficult to discern true hypokinesis vs. LBBB.
-DAPT with aspirin and ticagrelor x 12 months, followed by aspirin indefinitely.
-Tolerating carvedilol, losartan, atorvastatin.
#ICMO
-New diagnosis (ischemic vs. LBBB?).
-No evidence of HFpEF/HFmEF.
-Tolerating GDMT with carvedilol, losartan. At this time, no role for SGLT2i, MRA/ARNi.
-Repeat echocardiogram in 90 days.
#Hypertension
-Chronic, moderately uncontrolled.
-Tolerating carvedilol, losartan.
#Hyperlipidemia
-Chronic.
-Total cholesterol = 122, LDL = 50, HDL = 55, Triglycerides = 88.
-Continue atorvastatin 40 mg daily.
#PAD
-Chronic, stable.
-Denies current claudication/symptoms.
-Statin/DAPT as above.
#Dispo
-IVU status.
-Full code.
-Discharge.
Subjective/Interval History:
BP improved from yesterday.
Feels well.
DATA:
Transthoracic Echocardiogram, 07/08/2024:
CONCLUSIONS
Mildly reduced left ventricular function with estimated ejection fraction of
50%.
Abnormal septal motion related to left bundle branch block. Possible septal
and anteroseptal hypokinesis
Aortic sclerosis without stenosis
Mildly dilated aortic root.
Compared to the previous report LV function mildly decreased.
Cardiac Catheterization/PCI, 07/08/2024:
CONCLUSIONS
1. Right dominant circulation with a 30% lesion in the mid LAD after the origin of the first diagonal, a 50% distal LAD lesion, a 50-60% lesion in the ostium of the first diagonal, a 90% lesion in the mid ramus status post successful PCI ([employer]tronic
[place] 2.5 x 18 LUBA, postdilated with a 2.5 NC balloon) and a hazy, shelflike 90% plaque lesion in the proximal RCA, status post successful PCI ([employer]tronic [place] 3.5 x 22 LUBA, postdilated with a 3.5 NC balloon) with reduction in both
stenoses to 0%, maintaining JUAN-3 flow.
2. Top normal filling pressures (LVEDP = 15 mmHg at 69.9 kg) with evidence of significant diastolic dysfunction (A wave to 27 mmHg).
Physical Exam
Vital Signs/Labs
Vital Signs
Temp Pulse Resp BP Pulse Ox
36.8 C 62 16 130/83 96
07/10/24 07:18 07/10/24 05:00 07/10/24 07:18 07/10/24 04:57 07/10/24 07:18
07/08/24 07/09/24 07/10/24
11:59 11:59 11:59
Actual Weight 70 kg 67.9 kg
07/10/24 05:02
07/09/24 02:18
APTT 87.7 Sec (23.4-35.0) H 07/08/24 19:53
Magnesium 1.9 mg/dl (1.6-2.3) 07/08/24 11:11
Triglycerides 88 mg/dl (10-149) 07/09/24 02:18
Cholesterol 125 mg/dl (50-199) 07/08/24 19:53
LDL Cholesterol, Calc 50 mg/dl 07/09/24 02:18
VLDL Cholesterol, Calc 17 mg/dl (0-30) 07/09/24 02:18
HDL Cholesterol 55 mg/dl 07/09/24 02:18
LAB Results
07/08/24 07/08/24 07/08/24
11:11 13:50 17:47
Troponin I 0.125 H* 2.270 H* D Cancelled
07/08/24 07/08/24 07/08/24
19:53 20:47 23:47
Troponin I 8.610 H* D Cancelled Cancelled
07/09/24 07/09/24 07/09/24
02:18 08:57 14:30
Troponin I 13.800 H* D 11.200 H* Cancelled
07/09/24
20:30
Troponin I Cancelled
Physical Exam
Constitutional: No acute distress and Comfortable
EENT: Anicteric and Moist mucous membranes
Cardiovascular: Rhythm & rate is regular, Pedal edema is absent, JVD pressure is normal, S1S2 is normal and Murmur/rub/gallop absent
Respiratory: Respiratory effort normal, Lungs clear to auscul., Wheeze Absent, Crackles Absent and Rhonchi Absent
GI: Soft, Distention absent, Flat, Non tender, Normal bowel sounds and Distention present
Neuro/Psych: AO x 3
Other: Cath Site (Right radial access site is C/D/I.)
Data Reviewed
-
Date of Service: July 10, 2024
Medical Decision Making: Reviewed Test Results, Independent Historian Assessment and Test Interpretation
EKG: Tracing Personally Visualized and interpreted and Report Reviewed by me
Echo: Tracing Personally Visualized and interpreted and Report Reviewed by me
Medical Tests (PFT, Pathology etc): Image Personally Visualized and interpreted, Report Reviewed by me, Discussed with Patient and Discussed with Family
Labs: Labs Reviewed by me
Old Records: Reviewed
[2024-07-10] MEDS: ALPHAGAN P 0.1% EYE DROPS 1 DROP LEFT EYE (08:28)
[2024-07-10] MEDS: FOLVITE 1 MG PO (08:29)
[2024-07-10] MEDS: PROTONIX 40 MG PO (08:29)
[2024-07-10] MEDS: BRILINTA 90 MG PO (08:29)
[2024-07-10] MEDS: LOW STRENGTH ASPIRIN 81 MG PO (08:29)
[2024-07-10] MEDS: PROSCAR 5 MG PO (08:29)
[2024-07-10] MEDS: COREG 6.25 MG PO (08:29)
[2024-07-10] MEDS: COLACE 100 MG PO (08:29)
[2024-07-10] MEDS: THERAGRAN 1 TABLET PO (08:29)
[2024-07-10] MEDS: COZAAR 25 MG PO (08:30)
[2024-07-10] MEDS: TRUSOPT 2% OPHTHALMIC SOLUTION 1 DROP LEFT EYE (08:33)
[2024-07-10] MEDS: MURO-128/ADSORBONAC 2% EYE DROPS 1 DROP LEFT EYE (08:34)
--- NOTE | 2024-07-10 09:01 | W.PN.HOSP.TC ---
Today's Communication/Plan
-
DC planning
Assessment / Plan
Assessment / Plan
IMPRESSION: 84-year-old male with history hypertension, hypercholesterolemia, and GERD presents with NSTEMI
PLAN:
Acute NSTEMI:
� Elevated troponin with typical chest pain based on history
� Continue aspirin, brillinta, carvedilol, Losartan, atorvastatin
� Echo with Mildly reduced left ventricular function with estimated ejection fraction of 50%. Abnormal septal motion related to left bundle branch block. Possible septal and anteroseptal hypokinesis
- Status post Left heart cath: noted diastolic dysfunction. Stents placed in LAD and pRCA
� Trops peaked at 13.8, downtrend
-Medically stable for discharge
Hyperlipidemia:
� LDL controlled on Atorvastatin
� Atorvastatin 40mg
Essential hypertension:
- Norvasc switched to Losartan 25mg
GERD:
-PPI
CODE STATUS: Full code
Anticipated Discharge: Today
Subjective/Interval History
-
Date of Service: July 10, 2024
No complaints. No acute overnight events
Objective Data
-
Labs:
Laboratory Results
07/10/24
05:02
WBC 9.0
Hgb 12.2 L
Hct 35.7 L
Plt Count 180
Vital Signs:
Vital Signs
Temp Pulse Resp BP Pulse Ox
98.3 F 64 16 143/84 96
07/10/24 07:18 07/10/24 08:00 07/10/24 07:18 07/10/24 07:20 07/10/24 07:18
I&O
07/09/24 07/10/24 07/11/24
06:59 06:59 06:59
Intake Total 480 / 480
Balance 480 / 480
Review of Systems
-
History Source: Patient
Respiratory: Denies Cough or Trouble Breathing
Cardiac: Denies Chest Pain or Palpitations
Abdomen/GI: Denies Abdominal Pain, Nausea, Vomiting or Diarrhea
Physical Exam
-
General: Well Developed, Well Nourished, No Apparent Distress and Comfortable
HEENT: Normocephalic, Atraumatic and Moist Mucous Membranes
Respiratory: Clear to Auscultation and Non Labored Respirations; Negative Wheezes, Rales, Rhonchi or Crackles
Cardiac: Regular Rhythm and S1/S2; Negative Murmur, Rub or Calf Tenderness
GI: Soft, Nontender, Nondistended and Normal Bowel Sounds
Skin: Warm and Dry
Neuro: Awake, Alert and Oriented
Psych: Calm
--- NOTE | 2024-07-10 09:58 | W.PN.UPDATE ---
Update Note
Progress Note Update
I saw and evaluated the patient. I reviewed the resident�s note and agree with findings and plan as documented in the resident�s note.
Currently denies chest pain.
Gen: remains NAD, AAOx3.
Eyes: EOMI, PERRLA, no scleral icterus.
Neck: supple.
CV: remains RRR, +S1/S2, no m/r/g.
Resp: CTAB, no rales, wheezes, or rhonchi.
Skin: No rashes.
Neuro: remains CN 2-12 intact, non-focal.
Psych: Normal mood and affect.
ECG on admission (read by me): SR @ 79 with new LBBB
Echo: EF 50%. Abnormal septal motion related to left bundle branch block. Possible septal and anteroseptal hypokinesis. Aortic sclerosis without stenosis. Mildly dilated aortic root. Compared to the previous report LV function mildly decreased
Acute NSTEMI:
-On admission the patient was placed on a heparin drip and had an echocardiogram as above. With rising troponin the patient was taken to cardiac cath. Trop peaked at 13.8.
-[facility] 07/08/24 (femoral access): LVEDP = 15 (top normal) with a wave to 27 (diastolic dysfunction). Moderate LAD disease. 90% mid-ramus s/p 2.5 x 18 LUBA, calcified 90% pRCA s/p 3.5 x 22 LUBA.
-cont ASA/Brilinta/Lipitor/Coreg/Losartan
-case discussed with Dr. Abad and the pt is medically cleared for d/c
Other problems:
HLD: cont statin
Essential HTN: cont Coreg/Losartan
FULL code
Total time spent on d/c = 31 min. This included today's physical exam, progress note, review of laboratory and diagnostic data, preparation of discharge documents and prescriptions, and discussions about the pt's hospital course and discharge plan
with the patient and other medical detail representative involved in the patient's care.
--- NOTE | 2024-07-10 11:43 | PTCARENOTE ---
Pt had news today that his , who was having some chest discomfort, was being brought to the ER. He was very anxious to be discharged so that he could go see her. After speaking with his cousin he was reassured that his was okay and her pain
had subsided. Pt's discharge instructions were reviewed with him, he expressed understanding. Upon discharge, Pt was taken to the ER to see his , from there his cousin will drive him home.
--- NOTE | 2024-07-10 12:17 | CM ---
CM following for DC planning needs.
Met w patient at bedside. Pt. feels prepared and ready for DC. Concerned about spouse, who is in ED.
No identified DC needs.
Plan is for home, no needs.
--- NOTE | 2024-07-10 13:42 | W.DCSUMMARY ---
Discharge Summary
Discharge Data
Date of Admission: 07/08/24
Date of Discharge: 07/10/24
-
Pending Results: No
Hospital Course
Discharging Physician : Rayo Desai MD; Jailyn Saenz MD.
Disposition : Home
Primary care physician : Alejandra Parsons CRNP
Principal Discharge diagnosis : NSTEMI
Chronic Discharge diagnosis : hypertension, hypercholesterolemia, GERD, remote history of palpitations
Hospital Course :
HPI 07/08/24:
84-year-old male with above past medical history who presents with chest tightness. He went to bed last night in his usual state of health but was woken up by chest tightness at 4 AM. Also experienced vomiting, diarrhea, sweats, increased belching
and flatulence. He did not present immediately at symptom onset becomes chest tightness seem to be resolving. However he decided to come in as it did not resolve completely. He denies chest pain, worsening chest tightness with exertion,
palpitations, jaw/shoulder pain, headaches, lightheadedness or hx of recent illness. Currently no nausea/vomiting, abdominal pain or diarrhea. Chest discomfort resolved in the ER prior to sublingual nitroglycerin admin.
In ER, 168/, with other vitals stable. WBC 13.1, troponin 0.125. On admission, the patient was placed on a heparin drip and had an echocardiogram as described below. With rising troponin the patient was taken to cardiac cath and had stents placed
in Ramus intermedius and pRCA. Trop peaked at 13.8. Lipid panel showed controlled lipids on Atorvastatin 10mg. HbA1c 5.5.
He was started on high intensity statin therapy, aspirin, Brillinta, Coreg, and losartan.
Home medication changes:
Amlodipine was discontinued in favor of Losartan, Atorvastatin dose was increased from 10mg to 40mg daily, and Indomethacin was discontinued.
He remained stable throughout this admission and was deemed stable for discharge on 07/10/2024 with the following recommendations:
-Cardiology follow-up on 07/28/2024
-[facility] cardiac rehab appointment on 08/04/2024
-Follow-up with PCP within 1 week
-Avoid NSAIDs.
Procedure findings :
Left heart cath 07/08/2024:
PROCEDURE:
1. Left heart catheterization
2. Coronary angiography.
3. Successful PCI of the ramus intermedius.
4. Successful PCI of the proximal RCA.
CONCLUSIONS
1. Right dominant circulation with a 30% lesion in the mid LAD after the origin of the first diagonal, a 50% distal LAD lesion, a 50-60% lesion in the ostium of the first diagonal, a 90% lesion in the mid ramus status post successful PCI ([employer]
Clinton [place] 2.5 x 18 LUBA, postdilated with a 2.5 NC balloon) and a hazy, shelflike 90% plaque lesion in the proximal RCA, status post successful PCI ([employer] Alejandro [place] 3.5 x 22 LUBA, postdilated with a 3.5 NC balloon) with reduction in both
stenoses to 0%, maintaining JUAN-3 flow.
2. Top normal filling pressures (LVEDP = 15 mmHg at 69.9 kg) with evidence of significant diastolic dysfunction (A wave to 27 mmHg).
RECOMMENDATIONS:
1. Expectant management after cardiac catheterization via right radial and right femoral approach.
2. Limited weight bearing on the right wrist for one week.
3. Dual antiplatelet therapy with aspirin and ticagrelor for at least 12 months, followed by aspirin indefinitely.
4. Aggressive secondary prevention with high-dose, high potency statin. Increase atorvastatin to 40 mg daily. Goal LDL <55.
5. OMT/GDMT as hemodynamics will permit. The patient would benefit from SGLT2 inhibitor given his diastolic dysfunction.
6. Referral to cardiac rehab.
Discharge Plan
-
Patient Disposition: Home (Routine Discharge)
Discharge Diagnosis/Procedures: NSTEMI, Angioplasty with stent to RCA and Ramus artery
Condition: Good
Diet: Low Cholesterol
Activity: As tolerated
Driving Restrictions: No driving for 24 hours
Others Tests: Echocardiogram in 90 days
Other Services: Cardiac Rehab
Stand Alone Forms: DC Instructions- Cath/EP Lab
Referrals:
[facility] [Outside] - 08/04/24 1:00 pm
Maik Abad DO [Active] - 07/28/24 11:00 am
Alejandra Parsons CRNP [Family Provider] - in less than 1 week
Additional Discharge Medication Instructions: Avoid NSAIDs
Prescriptions:
New
Brilinta 90 mg Tablet
90 mg PO BID 30 Days Qty: 60 0RF
atorvastatin 40 mg Tablet
40 mg PO QPM 30 Days Qty: 30 0RF
carvedilol 6.25 mg Tablet
6.25 mg PO BID 30 Days Qty: 60 0RF
losartan 25 mg Tablet
25 mg PO DAILY 30 Days Qty: 30 0RF
Continued
aspirin 81 MG tablet,delayed release (DR/EC)
81 mg PO HS
docusate sodium [Stool Softener] 100 MG capsule
100 mg PO BID
vitamin A-vitamin C-vit E-min Tablet
1 tab PO DAILY
latanoprost 0.005 % Drops
1 drp BOTH EYES HS
calcium carbonate [Tums] 200 mg calcium (500 mg) Tablet,Chewable
200 mg PO Q6HPRN PRN (Reason: heartburn)
magnesium hydroxide 311 mg Tablet,Chewable
622 mg PO HS
dorzolamide 2 % Drops
1 drp LEFT EYE DAILY
Gaby 128 2 % Drops
1 drp LEFT EYE DAILY
Gaby 128 2 % Drops
1 drp BOTH EYES HS
brimonidine 0.1 % Drops
1 drp LEFT EYE DAILY
folic acid 1 mg Tablet
1 mg PO DAILY
therapeutic multivitamin Tablet
1 tab PO DAILY
omeprazole 20 mg Capsule,Delayed Release(Dr/Ec)
20 mg PO DAILY
dutasteride 0.5 mg Capsule
0.5 mg PO DAILY
Discontinued
atorvastatin [Lipitor] 10 MG tablet
10 mg PO HS
indomethacin [Indocin SR] 75 mg Capsule, Extended Release
75 mg PO DAILY
amlodipine 2.5 mg Tablet
2.5 mg PO BID
Discharge Orders:
Discharge Patient (As Directed); Ordered 07/10/24
Ordered By: Jailyn Saenz
Discharge Date and Time
Discharge Date/Time: 07/10/24 11:15
Print Language: VENEZUELAN
== END 2024-07-10 11:15 | disposition home or self-care (01) | DRG 322 ==
LOC: IVU 13:02
PROVIDERS: Internal Medicine Cardiovascular Disease; Nurse Practitioner; Student in an Organized Health Care Education/Training Program; ADMITTING PHYSICIAN Internal Medicine; CONSULT PHYSICIAN Internal Medicine Cardiovascular Disease; EMERGENCY PHYSICIAN Emergency Medicine; FAMILY PHYSICIAN Nurse Practitioner
PROC: 4A023N7 Measurement of Cardiac Sampling and Pressure, Left Heart, Percutaneous Approach (ICD-10-PCS; 2024-07-08)
PROC: 027135Z Dilation of Coronary Artery, Two Arteries with Two Drug-eluting Intraluminal Devices, Percutaneous Approach (ICD-10-PCS; 2024-07-08)
PROC: B211YZZ Fluoroscopy of Multiple Coronary Arteries using Other Contrast (ICD-10-PCS; 2024-07-08)
DX: I21.4 Non-ST elevation (NSTEMI) myocardial infarction (principal); I47.10 Supraventricular tachycardia, unspecified; I10 Essential (primary) hypertension; E78.00 Pure hypercholesterolemia, unspecified; H26.9 Unspecified cataract; K21.9 Gastro-esophageal reflux disease without esophagitis; N40.0 Benign prostatic hyperplasia without lower urinary tract symptoms; I73.9 Peripheral vascular disease, unspecified; I44.7 Left bundle-branch block, unspecified; I25.10 Atherosclerotic heart disease of native coronary artery without angina pectoris; I25.5 Ischemic cardiomyopathy; Z87.891 Personal history of nicotine dependence; Z88.0 Allergy status to penicillin; Z88.2 Allergy status to sulfonamides; Z79.899 Other long term (current) drug therapy; Z79.82 Long term (current) use of aspirin
CPT/HCPCS: 80053; 80061; 82465; 82962; 83036; 83735; 84484; 85025; 85027; 85347; 85730; 93005; 93306; 93458; 96374; 99152; 99153; 99285; C1725; C1760; C1874; C1887; C1894; C9600; Q9967

== ENCOUNTER 2024-08-17 15:27 | Outpatient (RCR) | payer MEDICARE, SELFPAY | END 2024-08-17 23:59 | disposition home or self-care (01) | LOC: CRHB 15:27 | PROVIDERS: ATTENDING PHYSICIAN Internal Medicine Cardiovascular Disease; FAMILY PHYSICIAN Internal Medicine | DX: I21.4 Non-ST elevation (NSTEMI) myocardial infarction (principal); I25.2 Old myocardial infarction (principal); Z95.5 Presence of coronary angioplasty implant and graft; I25.10 Atherosclerotic heart disease of native coronary artery without angina pectoris | CPT/HCPCS: G0422; G0423 ==

== ENCOUNTER 2024-09-09 15:36 | Outpatient (RCR) | payer MEDICARE, SELFPAY | END 2024-09-09 23:59 | disposition home or self-care (01) | LOC: CRHB 15:36 | PROVIDERS: ATTENDING PHYSICIAN Internal Medicine Cardiovascular Disease; FAMILY PHYSICIAN Internal Medicine | DX: I21.4 Non-ST elevation (NSTEMI) myocardial infarction (principal); I25.10 Atherosclerotic heart disease of native coronary artery without angina pectoris; Z95.5 Presence of coronary angioplasty implant and graft; I25.2 Old myocardial infarction | CPT/HCPCS: G0422; G0423 ==

== ENCOUNTER 2024-10-05 15:41 | Outpatient (RCR) | payer MEDICARE, SELFPAY | END 2024-10-05 16:51 | disposition home or self-care (01) | LOC: CRHB 15:41 | PROVIDERS: ATTENDING PHYSICIAN Internal Medicine Cardiovascular Disease; FAMILY PHYSICIAN Internal Medicine | DX: I21.4 Non-ST elevation (NSTEMI) myocardial infarction (principal); Z95.5 Presence of coronary angioplasty implant and graft; I25.10 Atherosclerotic heart disease of native coronary artery without angina pectoris; I25.2 Old myocardial infarction | CPT/HCPCS: G0422; G0423 ==

== ENCOUNTER → 2024-10-30 13:00 | Outpatient (REF) | payer MEDICARE, SELFPAY | LOC: RAD 13:00 | PROVIDERS: ATTENDING PHYSICIAN Nurse Practitioner | DX: M25.471 Effusion, right ankle (principal) | CPT/HCPCS: 93971 ==

== ENCOUNTER → 2024-11-06 12:31 | Outpatient (REF) | payer MEDICARE, SELFPAY | LOC: RAD 12:31 | PROVIDERS: ATTENDING PHYSICIAN Nurse Practitioner | DX: M25.471 Effusion, right ankle (principal) | CPT/HCPCS: 73610 ==

== ENCOUNTER → 2024-11-24 14:44 | Outpatient (REF) | payer MEDICARE, SELFPAY | LOC: HWRCS 14:44 | PROVIDERS: ATTENDING PHYSICIAN Nurse Practitioner; FAMILY PHYSICIAN Internal Medicine | DX: I25.10 Atherosclerotic heart disease of native coronary artery without angina pectoris (principal); E78.00 Pure hypercholesterolemia, unspecified; I10 Essential (primary) hypertension; R60.0 Localized edema | CPT/HCPCS: 93306 ==

== ENCOUNTER → 2025-02-17 08:56 | Outpatient (REF) | payer MEDICARE, SELFPAY | LOC: HWRAD 08:56 | PROVIDERS: ATTENDING PHYSICIAN Internal Medicine Cardiovascular Disease; FAMILY PHYSICIAN Nurse Practitioner | DX: R10.84 Generalized abdominal pain (principal) | CPT/HCPCS: 76770 ==

== ENCOUNTER 2025-05-05 13:48 | Emergency (ER) | payer MEDICARE, SELFPAY ==
[2025-05-05 13:57] VITALS: BP 198/106
[2025-05-05 13:59] VITALS: BP 206/113
[2025-05-05 14:19] LABS: Hematocrit 39.9 % (39.0-52.0); Hemoglobin 13.3 g/dL (13.0-18.0); Mean Corp Hgb Conc. 33.3 g/dL (33.0-37.0); Mean Corpuscular Volume 90.9 fL (80.0-94.0); Nucleated Red Blood Cells % 0 % (-); Platelet Count 268 10^3/uL (130-400); Red Cell Dist. Width 13.2 % (11.5-14.5)
[2025-05-05 14:44] LABS: ALT (SGPT) 15 U/L (0-50); AST (SGOT) 23 U/L (17-59); Albumin 4.4 g/dl (3.5-5.0); Alkaline Phosphatase 82 U/L (38-126); Blood Urea Nitrogen 17 mg/dl (9-20); Calcium 9.3 mg/dl (8.4-10.2); Carbon Dioxide 28 mmol/L (22-30); Chloride 101 mmol/L (98-107); Glucose 99 mg/dl (70-99); Potassium 4.4 mmol/L (3.5-5.1); Sodium 136 mmol/L (135-145); Total Protein 7.6 g/dl (6.3-8.2); eGFR > 60.00
[2025-05-05 14:56] LABS: Troponin I 0.017 ng/ml
[2025-05-05 15:56] VITALS: BP 183/94
--- NOTE | 2025-05-05 16:14 | ED.GENMED ---
History of Present Illness
General
Chief Complaint: Chest Pain
Time Seen by Provider: 05/05/25 16:03
History of Present Illness
History of Present Illness:
Edilson is an 85-year-old male with past medical history of NSTEMI status post stents, left bundle branch block, GERD who presents complaining of intermittent chest pain for several weeks that is improved after belching or passing gas. Presents to
the ER today as he 'wants to know what is going on'. No exacerbation of his symptoms. Denies pain with exertion. Was instructed to take protonix 40mg but has been taking 20mg.
Past History
Past History
ED Past Medical History: Arrthythmia, HTN, Hypercholesterolemia and Other (Bronchitis, palpitations, BPH, cataracts)
ED Past Surgical History: None
Social History
Tobacco: Non-smoker
Alcohol: None
Drug: None
Personal:
Living: with family
Employment: Retired
Family History
Family History: Hypertension
Phy Exam
General Physical Exam
General Presentation: well appearing and no apparent distress
General Skin: warm and dry
General Habitus: normal
General Mental: alert
General Hydration: appears well hydrated
ENT Exam
ENT Exam: EOMI, pharynx normal, neck supple and normocephalic
Eye Exam
Eye Exam: PERRL, cornea clear and conjunctiva normal
Cardiovascular Exam
Cardiovascular Exam: regular rate/rhythm, no edema, no murmur and normal peripheral pulses
Pulmonary Exam
Pulmonary Exam: lungs clear, no respiratory distress, no rales, no crackles, no rhonchi, no stridor, no wheezing and no cough
Gastrointestinal Exam
Gastrointestinal Exam: normal bowel sounds, non tender, soft, no organomegaly, no pulsatile mass and non distended
Neurological Exam
Neurological Exam: alert, oriented x3, no motor deficits and speech normal
Musculoskeletal Exam
Musculoskeletal Exam: full ROM and no edema
Skin Exam
Skin Exam: normal color, warm/dry, no rash and no petechia
Psychiatric Exam
Psychiatric Exam: normal mood/affect
Scores
Heart Score for Chest Pain Patients
STEMI patient?: No
History: Slightly or Non-Suspicious
ECG: Normal
Age: >/= 65 years
Risk Factors: >/= 3 Risk Factors or History of CAD
Troponin: </= Normal Limit
Heart Score for Chest Pain Patients: 4
Heart Score Risk: 20.3% MACE over next 6 weeks
Course
Orders/Labs/Results
Orders:
Orders
05/05/25 13:49
Electrocardiogram (*1) Urgent
Reason for Study: Chest Pain
Cardiac Monitoring- Treatment ONCE
EKG- Treatment ONCE
IV Insert/Care/Rem.- Treatment PRN
O2 Therapy [RESP] Urgent
Titrate/Wean O2 to maintain O2 sat greater than (%): 90
Special Instructions: Maintain sats >/=90%
Pulse Ox/spot Check [RESP] Urgent
Quantity: 1
Special Instructions: ON ROOM AIR
05/05/25 14:04
Comprehensive Metabolic Panel Urgent
Troponin I Urgent
05/05/25 14:05
Complete Blood Count/With Diff Urgent
05/05/25 16:31
Troponin I Urgent
Abnormal Lab Results
05/05/25
14:05
RBC 4.39 L 10^6/uL
(4.70-6.10)
MPV 11.4 H fL
(7.4-10.4)
Absolute Monos (auto) 0.7 H 10^3/uL
(0.1-0.6)
05/05/25 14:05
05/05/25 14:04
Vital Signs
Initial and Last Documented VS:
Initial Vital Signs
Temp Pulse Resp BP Pulse Ox
36.8 C 67 16 198/106 99
05/05/25 13:57 05/05/25 13:57 05/05/25 13:57 05/05/25 13:57 05/05/25 13:57
Last Documented Vital Signs
Temp Pulse Resp BP Pulse Ox
36.4 C 66 16 183/94 98
05/05/25 15:56 05/05/25 15:56 05/05/25 13:59 05/05/25 15:56 05/05/25 16:14
MDM/Problems Addressed
Differential Diagnosis Includes:
Patient was without pain during my exam. Reports that pain has not recurred since this morning. EKG obtained and shows normal sinus rhythm with left bundle branch block at 60 bpm consistent with prior EKGs. CBC and BMP unremarkable. Troponin
initially 0.017 and repeat 0.019. This is likely baseline. Denies any pain with exertion and symptoms do not sound concerning for ACS. Pain likely related to his GERD and taking half dose of Protonix. Recommended that he take full dose of
Protonix 40 mg and follow-up with his primary care doctor. Return precautions discussed including worsening chest pain especially with exertion, shortness of breath, nausea, vomiting or any other concerning symptom.
*Pulse Oximetry
SaO2: 98
Oxygen Mode of Delivery: Room air
Patient hypoxic: no
*Critical Care Note
Total Time (30-74mins, 75-104mins- exclusive of procedures): Not Applicable
ED Attending Note
-
Portions of this chart may have been created with voice recognition software.� Occasional wrong word or��sound alike� substitutions may have occurred due to the inherent limitations of voice recognition software.
Discharge Plan
Departure
Prescriptions:
No Action
aspirin 81 MG tablet,delayed release (DR/EC)
81 mg PO HS
docusate sodium [Stool Softener] 100 MG capsule
100 mg PO BID
vitamin A-vitamin C-vit E-min Tablet
1 tab PO DAILY
latanoprost 0.005 % Drops
1 drp BOTH EYES HS
calcium carbonate [Tums] 200 mg calcium (500 mg) Tablet,Chewable
200 mg PO Q6HPRN PRN (Reason: heartburn)
magnesium hydroxide 311 mg Tablet,Chewable
622 mg PO HS
dorzolamide 2 % Drops
1 drp LEFT EYE DAILY
Gaby 128 2 % Drops
1 drp LEFT EYE DAILY
Gaby 128 2 % Drops
1 drp BOTH EYES HS
brimonidine 0.1 % Drops
1 drp LEFT EYE DAILY
folic acid 1 mg Tablet
1 mg PO DAILY
therapeutic multivitamin Tablet
1 tab PO DAILY
omeprazole 20 mg Capsule,Delayed Release(Dr/Ec)
20 mg PO DAILY
dutasteride 0.5 mg Capsule
0.5 mg PO DAILY
Brilinta 90 mg Tablet
90 mg PO BID 30 Days Qty: 60 0RF
atorvastatin 40 mg Tablet
40 mg PO QPM 30 Days Qty: 30 0RF
carvedilol 6.25 mg Tablet
6.25 mg PO BID 30 Days Qty: 60 0RF
losartan 25 mg Tablet
25 mg PO DAILY 30 Days Qty: 30 0RF
Referrals:
Alejandra Parsons CRNP [Family Provider, Internal Medicine]
Interventions
Interventions:
*Neglect/Abuse Screening Last Done: 05/05/25 13:57
*ED COVID-19 Vaccine History Last Done: 05/05/25 16:32
*ED Influenza Vaccine History Last Done: 05/05/25 16:32
*Risk Screen - Suicide (C-SSRS) Last Done: 05/05/25 13:57
Discharge Date and Time
Print Language: GABONESE
[2025-05-05 16:32] VITALS: BMI 21.2
[2025-05-05 17:03] LABS: Troponin I 0.019 ng/ml
== END 2025-05-05 17:53 | disposition home or self-care (01) ==
LOC: EMR 13:48
PROVIDERS: Emergency Medicine; Surgery Trauma Surgery; EMERGENCY PHYSICIAN Emergency Medicine; FAMILY PHYSICIAN Nurse Practitioner
DX: K21.9 Gastro-esophageal reflux disease without esophagitis (principal); I10 Essential (primary) hypertension; E78.00 Pure hypercholesterolemia, unspecified; I44.7 Left bundle-branch block, unspecified; I25.2 Old myocardial infarction; N40.0 Benign prostatic hyperplasia without lower urinary tract symptoms; Z79.82 Long term (current) use of aspirin; Z79.02 Long term (current) use of antithrombotics/antiplatelets; Z95.5 Presence of coronary angioplasty implant and graft; Z82.49 Family history of ischemic heart disease and other diseases of the circulatory system
CPT/HCPCS: 99284; 80053; 84484; 85025; 93005